=== PATIENT | male | born 1995 | race Caucasian/White ===

== ENCOUNTER 2017-12-12 16:55 | Emergency (ER) | payer SELFPAY ==
[~2017-12-12] VITALS: Ht 180.3 cm; Wt 64.0 kg
[2017-12-12] MEDS ORDERED: NYST15CR2 TP (17:38)
[2017-12-12] MEDS ORDERED: PRED50TA PO (17:38)
[2017-12-12] MEDS ORDERED: HYDR25TA PO (17:38)
--- NOTE | 2017-12-12 17:38 | PHYS DOC ---
Past History Past Medical History: Anxiety Past Surgical History: No Surgical History Additional Smoking Information: 5-10 Cigarettes daily Alcohol Use: None Drug Use: None Adult General Chief Complaint Chief Complaint: SKIN PROBLEM HPI HPI 22-year-old male patient complaining of right ear rash in his face and scalp and lower extremities for one year. Patient states he gets new areas of rash that does not go away. Patient states he was seen by his primary care physician and treated with doxycycline and a because of with short time improvement of rash without responding to medication after 1 week. Patient fever and chills, taking new medication, hair loss. Review of Systems Review of Systems Constitutional: Denies fever or chills [] Eyes: Denies change in visual acuity, redness, or eye pain [] HENT: Denies nasal congestion or sore throat [] Respiratory: Denies cough or shortness of breath [] Cardiovascular: No additional information not addressed in HPI [] GI: Denies abdominal pain, nausea, vomiting, bloody stools or diarrhea [] : Denies dysuria or hematuria [] Musculoskeletal: Denies back pain or joint pain [] Integument: Reports rash and skin lesions [] Neurologic: Denies headache, focal weakness or sensory changes [] Endocrine: Denies polyuria or polydipsia [] All other systems were reviewed and found to be within normal limits, except as documented in this note. Allergies Allergies Allergies Coded Allergies Type Severity Reaction Last Updated Verified No Known Drug Allergies 12/12/17 No Physical Exam Physical Exam Constitutional: Well developed, well nourished, no acute distress, non-toxic appearance. [] HENT: Normocephalic, atraumatic Eyes: PERRLA, EOMI, conjunctiva normal, no discharge. [] Neck: Normal range of motion, no tenderness, supple, no stridor. [] Cardiovascular:Heart rate regular rhythm, no murmur [] Lungs & Thorax: Bilateral breath sounds clear to auscultation [] Skin: Erythematous and exfoliated rash on face and hair line area and scalp and bilateral lower extremities Neurologic: Alert and oriented X 3, normal motor function, normal sensory function, no focal deficits noted. [] Psychologic: Affect normal, judgement normal, mood normal. [] Current Patient Data Vital Signs Vital Signs Date Time Temp Pulse Resp B/P (MAP) Pulse Ox O2 Delivery O2 Flow Rate FiO2 12/12/17 17:02 97.7 72 16 97 Room Air EKG EKG [] Radiology/Procedures Radiology/Procedures [] Course & Med Decision Making Course & Med Decision Making Evaluation of patient in ER showed 22-year-old male patient presented to ER with complaining of chronic rash with itching. 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 Patient states that he needs to follow up with a seam hammerer for chronic rash. A course of steroid treatment and antihistamine was given. Dragon Disclaimer Dragon Disclaimer This electronic medical record was generated, in whole or in part, using a voice recognition dictation system. Departure Departure: Impression: Primary Impression: Chronic pruritic rash in adult Disposition: HOME, SELF-CARE (At 1735) Condition: STABLE Referrals: [facility] (PCP) Patient Instructions: Psoriasis Additional Instructions: Follow-up with a seam hammerer in 3-5 days Scripts Hydroxyzine Hcl (HYDROXYZINE HCL) 25 Mg Tablet 1 TAB PO TID PRN for ITCHING, #30 TAB Prov: CONSTANCE PINEDO MD 12/12/17 Prednisone (PREDNISONE) 50 Mg Tablet 1 TAB PO DAILY, #7 TAB Prov: CONSTANCE PINEDO MD 12/12/17 Nystatin/Triamcin (NYSTATIN-TRIAMCINOLONE CREAM) 15 Gm Cream..g. 1 NAMRATA TP BID, #60 GM 1 Refill Prov: CONSTANCE PINEDO MD 12/12/17 CONSTANCE PINEDO MD December 12, 2017 17:38
[2017-12-12 17:46] VITALS: BP 121/67
== END 2017-12-12 17:46 | disposition home or self-care (01) ==
LOC: ER 16:55
DX: R21 Rash and other nonspecific skin eruption (principal); L29.9 Pruritus, unspecified; F41.9 Anxiety disorder, unspecified; F17.210 Nicotine dependence, cigarettes, uncomplicated
CPT/HCPCS: 99283